=== PATIENT | male | born 2000 | race Caucasian/White ===

== ENCOUNTER 2019-04-04 13:06 | Emergency (ER) | payer OTHER ==
[2019-04-04] MEDS ORDERED: Ondansetron PF 4 MG/2 ML Vial ONE ×2 (13:43→13:44)
[2019-04-04] MEDS ORDERED: Ketorolac Tromethamine 30 MG/ML VIAL ONE (13:43)
[2019-04-04] MEDS ORDERED: Dexamethasone 10 MG/ML VIAL ONE (13:43)
[2019-04-04 13:50] LABS: Mean Corpuscular HGB CONC 33.6 g/dL (32.0-36.0); Mean Corpuscular Hemoglobin 29.9 pg (25.0-35.0); Mean Corpuscular Volume 89.1 fL (78.0-98.0); Mean Platelet Volume 6.8 fL (7.4-10.4); Platelet Count 213 thou/uL (130-400); RBC Distribution Width 11.6 % (11.5-14.5); Red Blood Cell (RBC) Count 5.01 mill/uL (4.00-5.20); White Blood Cell (WBC) Count 12.7 thou/uL (4.8-10.8)
[2019-04-04 14:00] LABS: Anion Gap 19 mmol/L (10-20); BUN (Urea Nitrogen) 10 mg/dL (8.9-20.6); Calc. Creatinine Clearance 0 mL/min (70-130); Calcium 9.5 mg/dL (7.8-10.44); Carbon Dioxide 22 mmol/L (22-29); Chloride 101 mmol/L (98-107); Estimated GFR-MDRD Greater than 90; Glucose 95 mg/dL (70-105); Potassium 3.7 mmol/L (3.5-5.1); Sodium 138 mmol/L (136-145)
[2019-04-04] MEDS ORDERED: Bicillin LA 1.2 MILLION UNITS/2 ML SYRINGE ONE (14:12)
[2019-04-04 14:26] LABS: Band 2 % (5-11); Eosinophils 1 % (0-10); Lymphocytes 17 % (28-48); MDiff Complete? YES; Monocytes 9 % (0-4); Neutrophil 71 % (31-61); Small Platelets SLIGHT
== END 2019-04-04 14:51 | disposition home or self-care (01) ==
LOC: SCSER 13:06
DX: J02.0 Streptococcal pharyngitis (principal); Z79.899 Other long term (current) drug therapy
CPT/HCPCS: 80048; 85025; 87430; 96372; 96374; 96375; J0561; J1100; J1885; J2405

== ENCOUNTER 2019-04-06 09:29 | Emergency (ER) | payer OTHER ==
[2019-04-07 18:22] LABS: Chlam.trachomatis by PCR,Urine Not Detected (NotDetected)
== END 2019-04-06 10:55 | disposition home or self-care (01) ==
LOC: SCSER 09:29
DX: K12.0 Recurrent oral aphthae (principal)
CPT/HCPCS: 87252; 87491; 87591; 99283